=== PATIENT | male | born 1940 | race Caucasian/White ===

== ENCOUNTER 2017-07-23 15:29 | Inpatient (IN) | payer MEDICARE, OTHER ==
[~2017-07-23] VITALS: Ht 193 cm; Wt 80.6 kg
[2017-07-23] MEDS ORDERED: IPRATROPIUM/ALBUTEROL SULFATE 3 ML SOLUTION IH ONE (16:05)
[2017-07-23] MEDS ORDERED: METHYLPREDNISOLONE SOD SUCC 125MG/2ML VIAL ONE (16:14)
[2017-07-23 16:36] LABS: BASOPHILS % (AUTO) 0.3 % (0.0-5.0); EOSINOPHILS % (AUTO) 0.5 % (0.0-8.0); HEMATOCRIT 37.3 % (42-54); LYMPHOCYTES % (AUTO) 5.1 % (21.0-51.0); MEAN CORPUSCULAR HEMOGLOBIN 29.6 pg (27.0-33.0); MEAN CORPUSCULAR HGB CONC 33.4 g/dL (32.0-36.0); MEAN CORPUSCULAR VOLUME 88.8 fL (79-99); MONOCYTES % (AUTO) 9.8 % (3.0-13.0); NEUTROPHILS % (AUTO) 84.3 % (40.0-77.0); PLATELET COUNT (AUTO) 506 K/uL (130-400); RED BLOOD CELL COUNT(AUTO) 4.21 MIL/uL (4.50-6.20); RED CELL DISTRIBUTION WIDTH 15.9 % (11.0-15.5); WHITE BLOOD COUNT (AUTO) 20.9 K/uL (4.8-10.8)
[2017-07-23 16:56] LABS: CREATININE 2.1 mg/dL (0.5-1.5); POTASSIUM 4.9 mmol/L (3.5-5.1)
[2017-07-23 17:01] LABS: ALBUMIN 2.4 g/dL (3.5-5.0); BILIRUBIN,TOTAL 0.5 mg/dL (0.2-1.0); TOTAL PROTEIN, SERUM 7.8 g/dL (6.0-8.3)
[2017-07-23 17:08] LABS: B-TYPE NATRIURETIC PEPTIDE 193 pg/mL (0-100)
[2017-07-23] MEDS ORDERED: SODIUM CHLORIDE 0.9% 1000ML 1,000 ML IV ONE (17:30)
[2017-07-23] MEDS ORDERED: AZITHROMYCIN 250 MG TABLET PO ONE (17:31)
[2017-07-23] MEDS ORDERED: CEFTRIAXONE SODIUM 1 GM ONE (17:58)
[2017-07-23] MEDS ORDERED: LEVOFLOXACIN 500 MG/D5W 100 ML 100 ML ONE (19:35)
[2017-07-23] MEDS ORDERED: LACTULOSE 20 GM/30 ML UDCUP PO PRN (21:15)
[2017-07-23] MEDS ORDERED: ACETAMINOPHEN 325 MG TAB PO PRN ×2 (21:15)
[2017-07-23] MEDS ORDERED: ONDANSETRON HCL 4 MG/2 ML VIAL IVP PRN (21:15)
[2017-07-23 21:43] LABS: APPEARANCE,URINE Clear (CLEAR); BILIRUBIN,URINE Negative (NEGATIVE); COLOR,URINE Dark Yellow (YELLOW); GLUCOSE, URINE (UA) Negative (NEGATIVE); KETONES,URINE Negative (NEGATIVE); LEUKOCYTE ESTERASE ,URINE Negative (NEGATIVE); NITRATE,URINE Negative (NEGATIVE); OCCULT BLOOD,URINE Negative (NEGATIVE); PROTEIN,URINE Negative (NEGATIVE)
[2017-07-23] MEDS: IPRATROPIUM/ALBUTEROL SULFATE 3 ML SOLUTION IH SCH (23:08)
[2017-07-24] MEDS ORDERED: SODIUM CHLORIDE 0.9% 1000ML 1,000 ML IV ONE (03:57)
[2017-07-24 04:24] LABS: BASOPHILS % (AUTO) 0.3 % (0.0-5.0); HEMATOCRIT 34.1 % (42-54); MEAN CORPUSCULAR HEMOGLOBIN 29.6 pg (27.0-33.0); MEAN CORPUSCULAR HGB CONC 33.1 g/dL (32.0-36.0); MEAN CORPUSCULAR VOLUME 89.3 fL (79-99); NEUTROPHILS % (AUTO) 93.7 % (40.0-77.0); PLATELET COUNT (AUTO) 411 K/uL (130-400); RED BLOOD CELL COUNT(AUTO) 3.82 MIL/uL (4.50-6.20); WHITE BLOOD COUNT (AUTO) 15.6 K/uL (4.8-10.8)
[2017-07-24 04:49] LABS: CARBON DIOXIDE 25 mmol/L (21-32); CHLORIDE 100 mmol/L (101-111); CREATINE KINASE MB 1.2 ng/mL (0.5-3.6); CREATINE KINASE, TOTAL 72 U/L (21-232); CREATININE 1.7 mg/dL (0.5-1.5); GLOMERULAR FILTR. RATE CALC 42 mL/min (>60); GLUCOSE,RANDOM 155 mg/dL (70-105); MYOGLOBIN 157 ng/mL (10-92); POTASSIUM 4.7 mmol/L (3.5-5.1); SODIUM SERUM 134 mmol/L (136-145); TROPONIN I < 0.04 ng/mL (0.00-0.06); UREA NITROGEN, BLOOD 42 mg/dL (7-18)
[2017-07-24 04:55] LABS: INR > 7.00 (0.85-1.15); PROTHROMBIN TIME > 63.0 SEC (9.6-11.6)
[2017-07-24] MEDS: IPRATROPIUM/ALBUTEROL SULFATE 3 ML SOLUTION IH SCH ×3 (06:09→19:51)
[2017-07-24] MEDS ORDERED: LEVOFLOXACIN 500 MG/D5W 100 ML 100 ML ONE (08:45)
[2017-07-24] MEDS ORDERED: LEVOFLOXACIN 500 MG/D5W 100 ML 100 ML IV SCH (09:00)
[2017-07-24 11:19] VITALS: BP 99/41
[2017-07-24 17:24] VITALS: BP 106/54
[2017-07-24] MEDS ORDERED: ACETAMINOPHEN 325 MG TAB PO PRN ×2 (19:45)
[2017-07-24] MEDS ORDERED: ONDANSETRON HCL 4 MG/2 ML VIAL IVP PRN (19:45)
[2017-07-24] MEDS ORDERED: POTASSIUM CHLORIDE 20MEQ/100ML 100 ML IV PRN (19:45)
[2017-07-24] MEDS ORDERED: POTASSIUM CHLORIDE 10% ELIXIR 20 MEQ/15 ML UDCUP PO PRN (19:45)
[2017-07-24] MEDS ORDERED: POTASSIUM CHLORIDE 20 MEQ ERTAB PO PRN (19:45)
[2017-07-24] MEDS ORDERED: CLONIDINE HCL 0.1 MG TABLET PO PRN (19:45)
[2017-07-24] MEDS ORDERED: LIDOCAINE HCL-MPF 1% 2ML VIAL IJ PRN (19:45)
[2017-07-24] MEDS ORDERED: SODIUM CHLORIDE 0.9% 1000ML 1,000 ML IV SCH (19:45)
[2017-07-24] MEDS ORDERED: LACTULOSE 20 GM/30 ML UDCUP PO PRN (19:45)
[2017-07-24] MEDS ORDERED: GUAIFENESIN-DM 200/20 MG 10 ML PO PRN (19:45)
[2017-07-24 19:51] VITALS: BP 115/50
[2017-07-24] MEDS: FAMOTIDINE 20MG TAB 20 MG TAB PO SCH (20:12)
[2017-07-25] VITALS (7 sets, daily range): BP systolic 95–115; BP diastolic 41–59
[2017-07-25] MEDS: IPRATROPIUM/ALBUTEROL SULFATE 3 ML SOLUTION IH SCH ×4 (00:38→19:14)
[2017-07-25 04:37] LABS: HEMATOCRIT 33.2 % (42-54); MEAN CORPUSCULAR HEMOGLOBIN 29.7 pg (27.0-33.0); MEAN CORPUSCULAR HGB CONC 33.7 g/dL (32.0-36.0); MEAN CORPUSCULAR VOLUME 88.2 fL (79-99); PLATELET COUNT (AUTO) 480 K/uL (130-400); RED BLOOD CELL COUNT(AUTO) 3.76 MIL/uL (4.50-6.20); RED CELL DISTRIBUTION WIDTH 15.8 % (11.0-15.5)
[2017-07-25 04:45] LABS: CREATININE 1.7 mg/dL (0.5-1.5); POTASSIUM 4.6 mmol/L (3.5-5.1)
[2017-07-25 06:18] LABS: B-TYPE NATRIURETIC PEPTIDE 322 pg/mL (0-100)
[2017-07-25 08:00] LABS: INR > 7.00 (0.85-1.15); PARTIAL THROMBOPLASTIN TIME > 120.0 SEC (26.3-35.5); PROTHROMBIN TIME > 63.0 SEC (9.6-11.6)
[2017-07-25] MEDS: FAMOTIDINE 20MG TAB 20 MG TAB PO SCH ×2 (08:40→21:30)
[2017-07-25] MEDS ORDERED: DIGO125T87 PO (13:18)
[2017-07-25] MEDS ORDERED: CARV12.511 PO (13:18)
[2017-07-25] MEDS ORDERED: WARF7.5T49 PO (13:18)
[2017-07-25] MEDS ORDERED: ALBUHFA IH (13:18)
[2017-07-25] MEDS ORDERED: LISI-613 PO (13:18)
[2017-07-25] MEDS ORDERED: ROSU10TA35 PO (13:18)
[2017-07-25] MEDS ORDERED: LOSA50TA37 PO (13:18)
[2017-07-25] MEDS ORDERED: WARF-57 PO (13:18)
[2017-07-25] MEDS ORDERED: FENO145T37 PO (13:18)
[2017-07-25] MEDS ORDERED: ALLO100T PO (13:18)
[2017-07-25] MEDS ORDERED: ADV500 IH (13:18)
[2017-07-25] MEDS: FUROSEMIDE 10 MG/ML 2ML VIAL IV SCH (13:29)
[2017-07-25] MEDS: METHYLPREDNISOLONE SOD SUCC 40MG/ML 1ML IVP SCH ×2 (13:30→21:28)
[2017-07-25] MEDS ORDERED: ALBUTEROL SULFATE 0.083% 2.5 MG/3 ML INH IH PRN (13:30)
[2017-07-25] MEDS ORDERED: MEROPENEM 500MG+NS 50ML 50 ML IV SCH (14:00)
[2017-07-25] MEDS ORDERED: MEROPENEM 500 MG VIAL IVP SCH (14:00)
[2017-07-25] MEDS: LEVOFLOXACIN 750 MG TABLET PO SCH (14:15)
[2017-07-25] MEDS ORDERED: CEFTAZIDIME 1GM+NS 50ML 50 ML IV SCH (15:15)
[2017-07-25] MEDS: ALBUTEROL SULFATE 0.083% 2.5 MG/3 ML INH IH SCH (18:00)
[2017-07-25] MEDS: BUDESONIDE 0.5 MG/2 ML INH IH SCH (19:14)
[2017-07-25] MEDS: ATORVASTATIN CALCIUM 20 MG TABLET PO SCH (21:30)
[2017-07-25] MEDS: CARVEDILOL 12.5 MG TABLET PO SCH (21:30)
[2017-07-25] MEDS: ALLOPURINOL 100 MG TABLET PO SCH (21:30)
[2017-07-25] MEDS: CEFTAZIDIME PENTAHYDRATE 1 GM/VIAL IVP SCH (21:31)
[2017-07-26] MEDS: IPRATROPIUM/ALBUTEROL SULFATE 3 ML SOLUTION IH SCH ×5 (00:22→23:36)
[2017-07-26] MEDS: METHYLPREDNISOLONE SOD SUCC 40MG/ML 1ML IVP SCH (03:46)
[2017-07-26] MEDS: FUROSEMIDE 10 MG/ML 2ML VIAL IV SCH ×2 (03:47→13:16)
[2017-07-26 04:27] VITALS: BP 119/52
[2017-07-26 04:53] LABS: HEMATOCRIT 37.4 % (42-54); MEAN CORPUSCULAR HEMOGLOBIN 29.7 pg (27.0-33.0); MEAN CORPUSCULAR HGB CONC 33.9 g/dL (32.0-36.0); MEAN CORPUSCULAR VOLUME 87.7 fL (79-99); PLATELET COUNT (AUTO) 551 K/uL (130-400); RED BLOOD CELL COUNT(AUTO) 4.27 MIL/uL (4.50-6.20); RED CELL DISTRIBUTION WIDTH 16.2 % (11.0-15.5); WHITE BLOOD COUNT (AUTO) 12.7 K/uL (4.8-10.8)
[2017-07-26 05:14] LABS: CREATININE 1.8 mg/dL (0.5-1.5); POTASSIUM 4.5 mmol/L (3.5-5.1)
[2017-07-26 05:29] LABS: B-TYPE NATRIURETIC PEPTIDE 316 pg/mL (0-100)
[2017-07-26 05:50] LABS: INR > 7.00 (0.85-1.15); PROTHROMBIN TIME > 63.0 SEC (9.6-11.6)
[2017-07-26] MEDS: BUDESONIDE 0.5 MG/2 ML INH IH SCH ×2 (06:26→18:11)
[2017-07-26 08:00] VITALS: BP 116/55
[2017-07-26] MEDS ORDERED: LOSARTAN 50 MG TABLET PO SCH (09:00)
[2017-07-26] MEDS: LISINOPRIL 20 MG TABLET PO SCH (09:36)
[2017-07-26] MEDS: FAMOTIDINE 20MG TAB 20 MG TAB PO SCH ×2 (09:36→22:13)
[2017-07-26] MEDS: ALLOPURINOL 100 MG TABLET PO SCH ×2 (09:36→22:13)
[2017-07-26] MEDS: CEFTAZIDIME PENTAHYDRATE 1 GM/VIAL IVP SCH ×2 (09:36→22:14)
[2017-07-26] MEDS: LOSARTAN 50 MG TABLET PO SCH (09:36)
[2017-07-26] MEDS: CARVEDILOL 12.5 MG TABLET PO SCH ×2 (09:37→22:14)
[2017-07-26] MEDS: DIGOXIN 125 MCG TABLET PO SCH (09:37)
[2017-07-26] MEDS: FENOFIBRATE NANOCRYSTALLIZED 145 MG TAB PO SCH (09:37)
[2017-07-26] MEDS ORDERED: PHYTONADIONE 10 MG/1 ML AMP SQ SCH (11:15)
[2017-07-26 12:00] VITALS: BP 105/47
[2017-07-26 16:00] VITALS: BP 96/40
[2017-07-26] MEDS: ALBUTEROL SULFATE 0.083% 2.5 MG/3 ML INH IH SCH ×2 (18:00)
[2017-07-26 19:00] VITALS: BP 101/51
[2017-07-26] MEDS: ATORVASTATIN CALCIUM 20 MG TABLET PO SCH (22:13)
[2017-07-26 23:50] VITALS: BP 104/54
[2017-07-27] MEDS: FUROSEMIDE 10 MG/ML 2ML VIAL IV SCH (00:35)
[2017-07-27 04:00] VITALS: BP 118/54
[2017-07-27 05:36] LABS: HEMATOCRIT 35.5 % (42-54); MEAN CORPUSCULAR HEMOGLOBIN 29.1 pg (27.0-33.0); MEAN CORPUSCULAR HGB CONC 33.5 g/dL (32.0-36.0); MEAN CORPUSCULAR VOLUME 86.8 fL (79-99); PLATELET COUNT (AUTO) 471 K/uL (130-400); RED CELL DISTRIBUTION WIDTH 15.9 % (11.0-15.5); WHITE BLOOD COUNT (AUTO) 18.1 K/uL (4.8-10.8)
[2017-07-27 05:44] LABS: CREATININE 1.8 mg/dL (0.5-1.5); POTASSIUM 4.1 mmol/L (3.5-5.1)
[2017-07-27 05:53] LABS: B-TYPE NATRIURETIC PEPTIDE 146 pg/mL (0-100)
[2017-07-27 06:06] LABS: INR 3.89 (0.85-1.15); PROTHROMBIN TIME 39.8 SEC (9.6-11.6)
[2017-07-27] MEDS: IPRATROPIUM/ALBUTEROL SULFATE 3 ML SOLUTION IH SCH ×4 (06:32→23:56)
[2017-07-27] MEDS: BUDESONIDE 0.5 MG/2 ML INH IH SCH ×2 (06:32→20:13)
[2017-07-27 08:00] VITALS: BP 112/45
[2017-07-27] MEDS: LOSARTAN 50 MG TABLET PO SCH (09:00)
[2017-07-27] MEDS: CARVEDILOL 12.5 MG TABLET PO SCH ×2 (09:00→20:50)
[2017-07-27] MEDS: DIGOXIN 125 MCG TABLET PO SCH (09:00)
[2017-07-27] MEDS: LISINOPRIL 20 MG TABLET PO SCH (09:00)
[2017-07-27] MEDS: CEFTAZIDIME PENTAHYDRATE 1 GM/VIAL IVP SCH ×2 (10:28→20:50)
[2017-07-27] MEDS: PREDNISONE 20 MG TABLET PO SCH (10:29)
[2017-07-27] MEDS: ALLOPURINOL 100 MG TABLET PO SCH ×2 (10:30→20:50)
[2017-07-27] MEDS: FAMOTIDINE 20MG TAB 20 MG TAB PO SCH ×2 (10:30→20:50)
[2017-07-27] MEDS: FENOFIBRATE NANOCRYSTALLIZED 145 MG TAB PO SCH (10:30)
[2017-07-27 12:00] VITALS: BP 100/45
[2017-07-27] MEDS: LEVOFLOXACIN 750 MG TABLET PO SCH (15:47)
[2017-07-27 16:00] VITALS: BP 98/56
[2017-07-27] MEDS ORDERED: WARFARIN SODIUM 1 MG TAB PO SCH (16:00)
[2017-07-27] MEDS: ACETYLCYSTEINE 20% 200MG/ML 4ML VIAL IH SCH ×2 (19:27→23:56)
[2017-07-27 20:00] VITALS: BP 101/58
[2017-07-27] MEDS: ATORVASTATIN CALCIUM 20 MG TABLET PO SCH (20:50)
[2017-07-27 23:52] VITALS: BP 120/62
[2017-07-28 04:00] VITALS: BP 108/50
[2017-07-28 06:09] LABS: HEMATOCRIT 34.9 % (42-54); MEAN CORPUSCULAR HEMOGLOBIN 29.3 pg (27.0-33.0); MEAN CORPUSCULAR HGB CONC 33.5 g/dL (32.0-36.0); MEAN CORPUSCULAR VOLUME 87.4 fL (79-99); PLATELET COUNT (AUTO) 457 K/uL (130-400); RED BLOOD CELL COUNT(AUTO) 3.99 MIL/uL (4.50-6.20); RED CELL DISTRIBUTION WIDTH 16.3 % (11.0-15.5); WHITE BLOOD COUNT (AUTO) 18.4 K/uL (4.8-10.8)
[2017-07-28 06:10] LABS: INR 1.54 (0.85-1.15); PARTIAL THROMBOPLASTIN TIME 33.7 SEC (26.3-35.5)
[2017-07-28] MEDS: BUDESONIDE 0.5 MG/2 ML INH IH SCH (06:38)
[2017-07-28] MEDS: IPRATROPIUM/ALBUTEROL SULFATE 3 ML SOLUTION IH SCH ×2 (06:38→11:44)
[2017-07-28 06:39] LABS: CREATININE 1.6 mg/dL (0.5-1.5); POTASSIUM 4.5 mmol/L (3.5-5.1)
[2017-07-28] MEDS: ACETYLCYSTEINE 20% 200MG/ML 4ML VIAL IH SCH (06:39)
[2017-07-28 08:12] VITALS: BP 98/47
[2017-07-28] MEDS: LOSARTAN 50 MG TABLET PO SCH (09:00)
[2017-07-28] MEDS: LISINOPRIL 20 MG TABLET PO SCH (09:00)
[2017-07-28] MEDS: DIGOXIN 125 MCG TABLET PO SCH ×2 (09:00→12:08)
[2017-07-28] MEDS: CARVEDILOL 12.5 MG TABLET PO SCH ×2 (09:00→12:07)
[2017-07-28] MEDS ORDERED: FUROSEMIDE 20 MG TABLET PO SCH (09:00)
[2017-07-28] MEDS: ALLOPURINOL 100 MG TABLET PO SCH (10:10)
[2017-07-28] MEDS: PREDNISONE 20 MG TABLET PO SCH (10:10)
[2017-07-28] MEDS: FAMOTIDINE 20MG TAB 20 MG TAB PO SCH (10:10)
[2017-07-28] MEDS: CEFTAZIDIME PENTAHYDRATE 1 GM/VIAL IVP SCH (10:10)
[2017-07-28] MEDS: FENOFIBRATE NANOCRYSTALLIZED 145 MG TAB PO SCH (10:13)
[2017-07-28 11:17] VITALS: BP 114/57
[2017-07-28 12:07] VITALS: BP 114/57
[2017-07-28] MEDS ORDERED: WARFARIN SODIUM 5 MG TAB PO SCH (16:00)
== END 2017-07-28 16:58 | disposition home or self-care (01) | DRG 871 ==
LOC: EDH 15:29 → OBSVTOIN 17:49 → EDHIP 17:49 → 4BH 07-24 16:45
PROVIDERS: ADMIT Family Medicine; ATTEND Family Medicine
DX: A41.9 Sepsis, unspecified organism (principal); J18.9 Pneumonia, unspecified organism; N17.9 Acute kidney failure, unspecified; E86.0 Dehydration; E87.8 Other disorders of electrolyte and fluid balance, not elsewhere classified; I35.0 Nonrheumatic aortic (valve) stenosis; E87.1 Hypo-osmolality and hyponatremia; E78.5 Hyperlipidemia, unspecified; I12.9 Hypertensive chronic kidney disease with stage 1 through stage 4 chronic kidney disease, or unspecified chronic kidney disease; K21.9 Gastro-esophageal reflux disease without esophagitis; N18.9 Chronic kidney disease, unspecified; R79.1 Abnormal coagulation profile; Z79.01 Long term (current) use of anticoagulants; Z95.2 Presence of prosthetic heart valve
CPT/HCPCS: 36415; 71046; 71250; 80048; 80053; 81003; 82550; 82553; 83605; 83874; 83880; 84484; 85025; 85027; 85610; 85730; 87040; 87071; 87205; 87804; 93005; 93306; 94640; 94664; A4218; J0696; J0713; J1940; J1956; J2185; J2920; J2930; J3430; J7030; J7608